=== PATIENT | female | born 1985 | race Caucasian/White ===

== ENCOUNTER → 2024-09-06 | Outpatient (CLI) | payer BC ==
--- NOTE | 2024-09-06 15:10 | XR ---
EXAMINATION TYPE: XR chest 2V DATE OF EXAM: 09/06/2024 2:14 PM COMPARISON: None CLINICAL INDICATION: Female, 39 years old with history of J18.9 PNEUMONIA, UNSPECIFIED ORGANISM; [facility] TECHNIQUE: XR chest 2V Frontal and lateral views of the chest. FINDINGS: Lungs/Pleura: There is no evidence of pleural effusion, focal consolidation, or pneumothorax. Pulmonary vascularity: Unremarkable. Heart/mediastinum: Cardiomediastinal silhouette is unremarkable. Musculoskeletal: No acute osseous pathology. Mild scoliosis. IMPRESSION: No acute cardiopulmonary disease/process. [facility], , 09/06/2024 3:07 PM
== END | disposition home or self-care (01) ==
LOC: RADXRMAIN 14:00
PROVIDERS: ATTEND Internal Medicine
DX: J18.9 Pneumonia, unspecified organism (principal)
CPT/HCPCS: 71046